=== PATIENT | female | born 1995 | race Hispanic/Latino ===

== ENCOUNTER → 2016-07-27 | Outpatient (REF) | payer SELFPAY ==
[2016-07-27 12:22] LABS: MEAN CORPUSCULAR HEMOGLOBIN 30.5 PG (26.0-34.0); MEAN CORPUSCULAR VOLUME 86 FL (80-100); MEAN PLATELET VOLUME 9.3 FL (6.0-9.5); PLATELET COUNT 285 10^3uL (150-450); WHITE BLOOD COUNT 7.36 10^3uL (4.0-11.0)
[2016-07-27 12:24] LABS: ANION GAP 14.4 MEQ/L (3-15)
[2016-07-27 12:42] LABS: MEAN CORPUSCULAR HGB CONC 35.6 g/dL (31.0-37.0)
[2016-07-27 12:46] LABS: BAND NEUTROPHILS % 0 % (0-6); EOSINOPHILS % 1 % (0-4); LYMPHOCYTES # 1.5 #; MONOCYTES # 1.3 #; MONOCYTES % 19 % (3-11); RBC MORPH NORMAL (NORMAL); SEGMENTED NEUTROPHILS % 59 % (51-67); TOTAL CELLS COUNTED 100
== END ==
LOC: LAB 11:33
PROVIDERS: ATTEND Nurse Practitioner Family
DX: N89.8 Other specified noninflammatory disorders of vagina (principal); N39.0 Urinary tract infection, site not specified; R10.2 Pelvic and perineal pain
CPT/HCPCS: 80048; 85025; 87077; 87088; 87186; 87210; 87491